=== PATIENT | female | born 1935 | race Caucasian/White ===

== ENCOUNTER 2018-12-08 06:49 | Inpatient (IN) ==
[2018-12-08] MEDS ORDERED: ACETAMINOPHEN 1,000 MG/100 ML VIAL IV STA (07:22)
[2018-12-08] MEDS ORDERED: ONDANSETRON INJ 2 MG/ML 2 ML VIAL IV STA (07:22)
[2018-12-08 07:41] LABS: Basophils # (auto) 0.04 K/uL (0-0.2); Basophils % (auto) 0.4 %; Eosinophils # (auto) 0.09 K/uL (0-0.5); Eosinophils % (auto) 0.8 %; Hematocrit (blood only) 40.4 % (37-47); Immature Granulocytes # (auto) 0.02 K/uL (0.00-0.02); Immature Granulocytes % (auto) 0.2 %; Lymphocytes # (auto) 1.43 K/uL (1.2-3.4); Mean Corpuscular Hgb Conc 34.7 g/dL (32-36); Mean Corpuscular Volume 81.5 fL (80-100); Mean Platelet Volume 10.3 fL (7.4-10.4); Monocytes % (auto) 9.1 %; Neutrophils # (auto) 8.43 K/uL (1.4-6.5); Neutrophils % (auto) 76.5 %; Platelet Count 236 K/uL (130-400); RDW Coefficient of Variation 12.8 % (11.5-14.5); Red Blood Count 4.96 M/uL (4.2-5.4); White Blood Count 11.01 K/uL (4.8-10.8)
[2018-12-08 07:56] LABS: Appearance Urine Cloudy (Clear); Color Urine Brown
[2018-12-08 07:57] LABS: BUN Creatinine Ratio 20.2 (10-20); Calcium 9.5 mg/dl (8.5-10.1); Creatinine Clr Calc Pharmacy 57.5 ml/min; Est GFR (African American) 70.9; Est GFR (Non-African American) 61.2; Potassium 3.5 mmol/L (3.5-5.1)
[2018-12-08 07:58] LABS: Specific Gravity Urine 1.013 (1.000-1.060)
[2018-12-08 08:04] LABS: Bacteria Urine 2+ (Negative); Epithelial Cell Urine 20-30 /lpf (0-5); RBC Urine >30 /hpf (0-4)
--- NOTE | 2018-12-08 08:08 | CT Scan Report ---
CT abd pelvis wo con CT DOSE: 981.51 mGy.cm HISTORY: Pain Pt c/o bladder mass removal. TECHNIQUE: Multiaxial CT images of the abdomen and pelvis were performed without contrast. A dose lo wering technique was utilized adhering to the principles of ALARA. COMPARISON STUDY: 11/22/2018 FINDINGS: Lung bases remain clear. There are bilateral renal parapelvic cysts which are unchanged. Th ere is a 3 mm nonobstructing renal cortical calcification unchanged from the prior study. Liver spleen and pancreas appear unremarkable. There are 2 fat containing nonobstructing ventral dane ias. These are unchanged prior study. The abdominal bowel pattern is nonobstructive. Pelvis shows bladder is collapsed. High density 5 cm pocket within the right pelvic cul-de-sac. This potentially represents a postprocedural hematoma. There is a small air-containing cystic focus immedi ately anterior to this measuring 3 cm. This may represent a small abscess. Pelvic bowel pattern is nonobstructive. IMPRESSION: 1. Interval removal of the nodular density/polypoid density of the right bladder. 2. Residual 5 cm high density pocket most likely representing a hematoma within the right central pel vis with a small 3 cm abscess immediately adjacent. 3. No additional acute abnormality. The above report was generated using voice recognition software. It may contain grammatical, syntax or spelling errors. Electronically signed by: Maikel Porras M.D. 12/08/2018 8:06 AM
[2018-12-08] MEDS ORDERED: DAPTOMYCIN IV SCH (08:15)
[2018-12-08] MEDS ORDERED: PIPERACILLIN/TAZOBACTAM 3.375 GM/115 ML BAG IV STA (08:15)
[2018-12-08] MEDS ORDERED: PIPERACILL/TAZOBAC CONSULT ACTIVE PRN (08:15)
[2018-12-08] MEDS ORDERED: DAPTOmycin 300 MG in SYRINGE 0 ML IV ONE (08:45)
--- NOTE | 2018-12-08 09:01 | History & Physical Report ---
Date of Service December 08, 2018 Assessment & Plan (1) Urinary retention: (2) S/P urological surgery: (3) Hematoma: - Admit to med surg per request of urology - Pt underwent elective urological surg on 12/[address] 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 Interval removal of the nodular density/polypoid density of the right bladder. 2. Residual 5 cm high density pocket most likely representing a hematoma within the right central pelvis with a small 3 cm abscess immediately adjacent. 3. No additional acute abnormality. - NPO in case of procedure, last PO intake 5pm on 12/07. - Pain control with pyridium, percocet, meloxicam - BCx x 2, Ucx in process - Received zosyn and daptomycin in the ER, continue for now. Titrate per urology - Urinary retention and had 1L out with straight cath in ER, monitor for retention with PVR bladder scan. (4) HTN (hypertension): - Order morning losartan-hctz and amlodipine now as she missed meds - Pain control will improve BP as well (5) DVT prophylaxis: -teds, scds, no chemical ppx in the setting of hematoma/surgical procedure. History of Present Illness Primary Care Provider: Laurent Crockerkarina This is an 83 yo F with PMHx of HTN, bulging disc, frequent UTI, hx of uterine fibroid, macular degeneration, sleep apnea but does not use CPAP who presents with acute onset of lower back pain and urinary urgency this morning. Pt underwent elective urological surgery by Dr. 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 Pt notes she was leaking urine in small amounts and that it appeared dark red overnight, no passing of clot. She had last normal BM on Monday but is passing gas. Pt has not eaten or drank anything since last evening at 5pm. Pt was able to take mybetriq and pyridium this morning but missed other medications. She denies any other acute complaints. Allergies Allergy/AdvReac Type Severity Reaction Status Date / Time Iodinated Contrast- Oral and Allergy Unknown Anaphylaxis Verified 12/08/18 07:23 IV Dye Home Medications Home Medications Medication Instructions Recorded Confirmed Type Myrbetriq 50 mg PO QAM 11/16/18 12/08/18 History PreserVision AREDS-2 2 tab PO QAM 11/16/18 12/08/18 History Restasis 1 drp OPHTHALMIC (EYE) Q12H 11/16/18 12/08/18 History amlodipine 10 mg PO QAM 11/16/18 12/08/18 History ergocalciferol (vitamin D2) 50,000 unit PO MONTHLY 11/16/18 12/08/18 History [Vitamin D2] losartan-hydrochlorothiazide 2 tab PO QAM 11/16/18 12/08/18 History meloxicam 15 mg PO QAM 11/16/18 12/08/18 History zolpidem [Ambien] 10 mg PO HS PRN 11/16/18 12/08/18 History ciprofloxacin HCl [Cipro] 500 mg PO BID #6 tab 12/06/18 12/08/18 Rx oxycodone-acetaminophen [Percocet] 1 tab PO Q6H PRN #10 tab 12/06/18 12/08/18 Rx phenazopyridine [Pyridium] 200 mg PO TID PRN #20 tab 12/06/18 12/08/18 Rx biotin 1 mg PO DAILY 12/08/18 12/08/18 History Past Med/Surg History Medical History Hematoma Urinary retention (Acute) Bladder cancer Bulging discs Chronic back pain Frequent UTI History of uterine fibroid Hypertension Macular degeneration Sleep apnea does not tolerate CPAP Surgical History S/P urological surgery H/O blepharoplasty 02/29/16 - MAC #3, ETT#7.0, Oral, Grade 1 View, Atraumatic DVL x 1 History of cardiac cath 8 years ago - [facility] - no stents/angioplasty > 10 years ago - [facility] - no stents/angioplasty History of cholecystectomy History of colonoscopy History of cystoscopy History of tooth extraction History of total abdominal hysterectomy and bilateral salpingo-oophorectomy w/ appendectomy Family History Brother Family hx of colon cancer Sister Family hx of colon cancer Social History Preferred Language: Latvian Communication Ability: Effective Marble Setter Required: No Beliefs That Will Affect Care: None Current Living Situation: Spouse Other Information That Helps Us Care for You: No Feels Safe at Home: Yes Safety Concerns: Feels Safe At This Time Smoking Status: Never smoker Do You Dip or Chew Tobacco: No Second Hand Exposure: No Tobacco Cessation Education Requested by Patient: No Hx Alcohol Use: No Hx Substance Use: No Review of Systems Review of Systems: Constitutional: No fever, sweats or chills Eyes: No diplopia, no worsening or blurred vision ENT: normal hearing, no trouble swallowing Respiratory: No cough, sputum, dyspnea at rest or on exertion Cardiovascular: No chest pain, tightness or palpitations Abdomen: No pain, nausea, vomiting, diarrhea or constipation Musculoskeletal: No joint pain, calf pain, swelling Neurologic: No weakness, numbness/tingling, or balance problems Urological: As per HPI. Skin: No rash or itch Physical Exam Physical Exam: General: awake, alert, no apparent distress Head: Normocephalic, atraumatic ENT: PERRL, EOMI, no pharyngeal exudate, mucous membranes moist Chest: Clear to auscultation, on room air, no adventitious breath sounds Cardiac: Regular rate and rhythm, no murmur, no JVD, normal peripheral pulses, good capillary refill Abdominal: NABS x 4 quadrants, soft, + slightly distended, nontender to palpation, no rebound, guarding or tenderness Extremities: Normal inspection, 1+ peripheral edema bilaterally, no erythema, calfs nontender to palpation Psych: Normal mood and affect Neuro: AAO x 3, no motor deficits, speech is clear Results & Data Vital Signs (Past 12 Hours) Vital Signs Temp Pulse Pulse Resp BP BP Pulse Ox 12/08/18 08:47 99 H 20 163/72 H 94 12/08/18 08:08 86 L 12/08/18 08:07 98 H 20 133/70 87 L 12/08/18 06:55 36.6 C 112 H 20 178/[address] H [address] abd pelvis wo con CT DOSE: 981.51 mGy.cm HISTORY: Pain Pt c/o bladder mass removal. TECHNIQUE: Multiaxial CT images of the abdomen and pelvis were performed without contrast. A dose lowering technique was utilized adhering to the principles of ALARA. COMPARISON STUDY: 11/22/2018 FINDINGS: Lung bases remain clear. There are bilateral renal parapelvic cysts which are unchanged. There is a 3 mm nonobstructing renal cortical calcification unchanged from the prior study. Liver spleen and pancreas appear unremarkable. There are 2 fat containing nonobstructing ventral hernias. These are unchanged prior study. The abdominal bowel pattern is nonobstructive. Pelvis shows bladder is collapsed. High density 5 cm pocket within the right pelvic cul-de-sac. This potentially represents a postprocedural hematoma. There is a small air-containing cystic focus immediately anterior to this measuring 3 cm. This may represent a small abscess. Pelvic bowel pattern is nonobstructive. IMPRESSION: 1. Interval removal of the nodular density/polypoid density of the right bladder. 2. Residual 5 cm high density pocket most likely representing a hematoma within the right central pelvis with a small 3 cm abscess immediately adjacent. 3. No additional acute abnormality. Code Status & VTE Plan Code Status DNR- discussed with pt and daughter at bedside Supervising Physician Co-Signing Physician Notes During my face to face encounter, patient was interviewed for a history and examined for a physical exam. I reviewed above note done by [facility] and agree with it. Patient initially was admitted to our service for hematuria. Will monitor urine output for hematuria. D/W urologist and patient will be switched to Urology service for tomorrow with medicine on consult as this is mainly a urological problem. Anticipate a short hospital stay. If Urology has any further question or needs our input, please feel free to call us.
[2018-12-08] MEDS ORDERED: ONDANSETRON INJ 2 MG/ML 2 ML VIAL IV PRN (09:09)
[2018-12-08] MEDS ORDERED: ACETAMINOPHEN 325 MG TAB PO PRN (09:09)
--- NOTE | 2018-12-08 09:32 | Emergency Department Note ---
Entered by May Art acting as a scribe for Cortes Lewis MD History of Present Illness General Chief complaint: Urinary Symptoms Stated complaint: SURGERY ON 12/06/18 NOW URINARY SYMPTOMS Time Seen by Provider: 12/08/18 07:00 Source: patient History of Present Illness Onset (ago): day(s) 1 Location: pelvis Pain Consistency: + other (persistent) Maximum Pain Intensity: 10 Quality: + other (urinary frequency) Relieved By: not by medication (Ciprofloxacin, Pyridium) Exacerbated By: + movement Associated symptoms: + denies other symptoms (dysuria, hematuria, nausea, vomiting, fever, or chills) and + other (mild urinary leakage with movement, constipation) The patient is a 83 year old female that is presenting to the Emergency Room with complaints of persistent urinary frequency that started yesterday. The patient reports that she had a transurethral resection of her bladder 2 days ago for a bladder mass. She states that yesterday she started having urinary frequency and that she is dripping urine every time stands up. She notes that she has to lie flat to avoid any urinary leakage. The patient states that she is not producing much urine when she urinates. She reports that she started having bilateral back pain this morning and decided to come to the Emergency Room. She denies any dysuria or blood clots in her urine. She denies any nausea, vomiting, fever, or chills. She reports that her symptoms are not relieved by Pyridium or Ciprofloxacin. The patient states that she last took Cipro yesterday and denies taking any today. She notes that her last bowel movement was 2 days ago prior to surgery. She states that she has taken Miralax with no relief in her constipation symptoms. She states that she spoke with Dr. Adame yesterday and that he did not seem overly concerned about her symptoms. She reports that he told her to come to the ED if her symptoms worsened. She notes that she has a history of frequent UTIs and hypertension. She denies any history of diabetes. Home Medications Home Medications Medication Instructions Recorded Confirmed Type Myrbetriq 50 mg PO QAM 11/16/18 12/08/18 History PreserVision AREDS-2 2 tab PO QAM 11/16/18 12/08/18 History Restasis 1 drp OPHTHALMIC (EYE) Q12H 11/16/18 12/08/18 History amlodipine 10 mg PO QAM 11/16/18 12/08/18 History ergocalciferol (vitamin D2) 50,000 unit PO MONTHLY 11/16/18 12/08/18 History [Vitamin D2] losartan-hydrochlorothiazide 2 tab PO QAM 11/16/18 12/08/18 History meloxicam 15 mg PO QAM 11/16/18 12/08/18 History zolpidem [Ambien] 10 mg PO HS PRN 11/16/18 12/08/18 History ciprofloxacin HCl [Cipro] 500 mg PO BID #6 tab 12/06/18 12/08/18 Rx oxycodone-acetaminophen [Percocet] 1 tab PO Q6H PRN #10 tab 12/06/18 12/08/18 Rx phenazopyridine [Pyridium] 200 mg PO TID PRN #20 tab 12/06/18 12/08/18 Rx biotin 1 mg PO DAILY 12/08/18 12/08/18 History Allergies Allergy/AdvReac Type Severity Reaction Status Date / Time Iodinated Contrast- Oral and Allergy Unknown Anaphylaxis Verified 12/08/18 07:23 IV Dye Past Med/Surg History Medical History Hematoma Urinary retention (Acute) Bladder cancer Bulging discs Chronic back pain Frequent UTI History of uterine fibroid Hypertension Macular degeneration Sleep apnea does not tolerate CPAP Surgical History S/P urological surgery H/O blepharoplasty 02/29/16 - MAC #3, ETT#7.0, Oral, Grade 1 View, Atraumatic DVL x 1 History of cardiac cath 8 years ago - [facility] - no stents/angioplasty > 10 years ago - [facility] [place] stents/angioplasty History of cholecystectomy History of colonoscopy History of cystoscopy History of tooth extraction History of total abdominal hysterectomy and bilateral salpingo-oophorectomy w/ appendectomy Family History Brother Family hx of colon cancer Sister Family hx of colon cancer Social History Preferred Language: Danish Communication Ability: Effective Beliefs That Will Affect Care: None Current Living Situation: Spouse Feels Safe at Home: Yes Smoking Status: Never smoker Second Hand Exposure: Yes ( used to be a smoker (quit 40 years ago)) Hx Alcohol Use: No Hx Substance Use: No Review of Systems See HPI for pertinent positives & negatives. and A total of 10 systems reviewed and were otherwise negative Physical Exam Vital Signs Vital Signs - 24 hr 12/08/18 06:55 12/08/18 08:07 12/08/18 08:08 Temperature 36.6 C Temperature Source Oral Sepsis Recent Fever Within 48 Hours No Sepsis Action Taken by Nursing No Action Required Pulse Rate 112 H Pulse Rate [Left Finger] 98 H Pulse Rhythm [Left Finger] Regular Pulse Strength [Left Finger] Normal Respiratory Rate 20 20 Respiratory Effort / Characteristics Non-Labored Non-Labored Spontaneous Respiratory Depth Normal Normal Respiratory Pattern Regular Blood Pressure 178/70 H Blood Pressure [Left Arm] 133/70 Blood Pressure Mean 106 Blood Pressure Mean [Left Arm] 91 Blood Pressure Position [Left Arm] Sitting Pulse Oximetry 95 87 L 86 L Oxygen Delivery Method Room Air Room Air Room Air Oxygen Flow Rate 12/08/18 08:47 Temperature Temperature Source Sepsis Recent Fever Within 48 Hours Sepsis Action Taken by Nursing Pulse Rate Pulse Rate [Left Finger] 99 H Pulse Rhythm [Left Finger] Regular Pulse Strength [Left Finger] Normal Respiratory Rate 20 Respiratory Effort / Characteristics Non-Labored Spontaneous Respiratory Depth Normal Respiratory Pattern Regular Blood Pressure Blood Pressure [Left Arm] 163/72 H Blood Pressure Mean Blood Pressure Mean [Left Arm] 102 Blood Pressure Position [Left Arm] Sitting Pulse Oximetry 94 Oxygen Delivery Method Nasal Cannula Oxygen Flow Rate 2 GENERAL: Awake, alert, well-appearing, in no acute distress HENT: Normocephalic, atraumatic. Oropharynx unremarkable. EYES: Normal conjunctiva. Sclera non-icteric. NECK: Supple. No nuchal rigidity. FROM. No JVD. RESPIRATORY: Clear to auscultation. CARDIAC: Regular rate, normal rhythm. Extremities warm and well perfused. Pulses equal. ABDOMEN: Soft, non-distended. No tenderness to palpation. No rebound or guarding. No masses. RECTAL: Deferred. MUSCULOSKELETAL: Chest examination reveals no tenderness. The back is symmetrical on inspection without obvious abnormality. There is no CVA tenderness to palpation. No joint edema. LOWER EXTREMITIES: Calves are equal size bilaterally and non-tender. No edema. No discoloration. NEURO: Normal sensorium. No sensory or motor deficits noted. SKIN: No rash or jaundice noted. Course 704: The patient was seen and evaluated by the Resident Physician at this time. History and physical were discussed with me. 0737: Bladder scan revealed 648ccs of urine were retained in the bladder after voiding. 0813: The patient's case was discussed with [facility], who recommended starting the patient on a course of Rocephin and that she be admitted to the Hospitalist Service. He will evaluate the patient further. 0820: I discussed the patients case with FRANCY Walker, who will evaluate the patient for further management and care with Dr. Rojas as the attending physician. 0830: Upon reevaluation, the patient is resting comfortably. I discussed laboratory and radiographic results with the patient. She verbalized agreement of the treatment plan. The patient will be evaluated for further management and care. Consultations Consultation #1: The patient's case was discussed with [facility], who recommended starting the patient on a course of Rocephin and that she be admitted to the Hospitalist Service. He will evaluate the patient further. Time: 08:13 Consultation #2: I discussed the patients case with FRANCY Walker, who will evaluate the patient for further management and care with Dr. Rojas as the attending physician. Time: 08:20 Administered Medications Discontinued Medications Acetaminophen (Ofirmev) 1,000 mg in 100 mls @ 400 mls/hr IV NOW STA Stop: 12/08/18 07:36 Last Infusion: 12/08/18 08:10 Dose: 0 mls/hr Documented by: [id number] Admin: 12/08/18 07:40 Dose: 400 mls/hr Documented by: [id number] Piperacillin Sod/Tazobactam Sod (Zosyn) 3.375 gm in 115 mls @ 230 mls/hr IV NOW STA Stop: 12/08/18 08:44 Last Admin: 12/08/18 08:43 Dose: 230 mls/hr Documented by: [id number] Daptomycin 300 mg/ Syringe 6 mls @ 3 mls/min IV NOW ONE; Protocol Stop: 12/08/18 08:46 Last Admin: 12/08/18 09:16 Dose: 3 mls/min Documented by: [id number] Ondansetron HCl (Zofran) 4 mg IV NOW STA Stop: 12/08/18 07:23 Last Admin: 12/08/18 07:40 Dose: 4 mg Documented by: [id number] Medical Decision Making Differential Diagnosis Differential diagnosis: Etiologies such as biliary colic, cholecystitis, hepatitis, perihepatitis, pancreatitis, cardiac disease, pancreatitis, gastritis, peptic ulcer disease, appendicitis, ovarian cyst, ovarian torsion, ectopic , pelvic inflammatory disease, cystitis, diverticulitis, mesenteric ischemia, inflammatory bowel disease, ileus, bowel obstruction, aortic pathology, shingles, as well as others were considered. Medical Records Attestation: I reviewed the patient's medical records. Home Medications Current Medication List: was personally reviewed by me Laboratory Data Attestation: I reviewed the patient's lab results. Result diagrams: 12/08/18 07:21 12/08/18 07:21 Lab Results 12/08/18 12/08/18 12/08/18 Range/Units 07:21 07:21 07:35 WBC 11.01 H (4.8-10.8) K/uL RBC 4.96 (4.2-5.4) M/uL Hgb 14.0 (12.0-16.0) g/dL Hct 40.4 (37-47) % MCV 81.5 (80-100) fL MCH 28.2 (25-34) pg MCHC 34.7 (32-36) g/dL RDW Std Deviation 38.0 (36.4-46.3) fL RDW Coeff of Wilber 12.8 (11.5-14.5) % Plt Count 236 (130-400) K/uL MPV 10.3 (7.4-10.4) fL Immature Gran % (Auto) 0.2 % Neut % (Auto) 76.5 % Lymph % (Auto) 13.0 % Woodward % (Auto) 9.1 % Eos % (Auto) 0.8 % Baso % (Auto) 0.4 % Immature Gran # (Auto) 0.02 (0.00-0.02) K/uL Neut # (Auto) 8.43 H (1.4-6.5) K/uL Lymph # (Auto) 1.43 (1.2-3.4) K/uL Woodward # (Auto) 1.00 H (0.11-0.59) K/uL Eos # (Auto) 0.09 (0-0.5) K/uL Baso # (Auto) 0.04 (0-0.2) K/uL Sodium 138 (136-145) mmol/L Potassium 3.5 (3.5-5.1) mmol/L Chloride 101 (98-107) mmol/L Carbon Dioxide 29 (21-32) mmol/L Anion Gap 8.0 (3-11) BUN 18 (7-18) mg/dl Creatinine 0.88 (0.6-1.2) mg/dl Est Cr Clr Drug Dosing 57.5 ml/min Est GFR ( Amer) 70.9 Est GFR (Non-Af Amer) 61.2 BUN/Creatinine Ratio 20.2 H (10-20) Glucose 142 H (70-99) mg/dl Calcium 9.5 (8.5-10.1) mg/dl Urine Color Brown Urine Appearance Cloudy A (Clear) Urine pH (4.5-7.5) Ur Specific Davenport 1.013 (1.000-1.060) Urine Protein (Negative) Urine Glucose (UA) (Negative) Urine Ketones (Negative) Urine Blood (Negative) Urine Nitrite (Negative) Urine Bilirubin (Negative) Urine Urobilinogen (Negative) Ur Leukocyte Esterase (Negative) Urine RBC >30 H (0-4) /hpf Urine WBC 10-30 H (0-5) /hpf Ur Epithelial Cells 20-30 H (0-5) /lpf Urine Bacteria 2+ H (Negative) Imaging Data Radiologist's Impression: Radiology results as stated below per my review and the radiologist's interpretation: CT abd pelvis wo con CT DOSE: 981.51 mGy.cm HISTORY: Pain Pt c/o bladder mass removal. TECHNIQUE: Multiaxial CT images of the abdomen and pelvis were performed without contrast. A dose lowering technique was utilized adhering to the principles of ALARA. COMPARISON STUDY: 11/22/2018 FINDINGS: Lung bases remain clear. There are bilateral renal parapelvic cysts which are unchanged. There is a 3 mm nonobstructing renal cortical calcification unchanged from the prior study. Liver spleen and pancreas appear unremarkable. There are 2 fat containing nonobstructing ventral hernias. These are unchanged prior study. The abdominal bowel pattern is nonobstructive. Pelvis shows bladder is collapsed. High density 5 cm pocket within the right pelvic cul-de-sac. This potentially represents a postprocedural hematoma. There is a small air-containing cystic focus immediately anterior to this measuring 3 cm. This may represent a small abscess. Pelvic bowel pattern is nonobstructive. IMPRESSION: 1. Interval removal of the nodular density/polypoid density of the right jazmin dder. 2. Residual 5 cm high density pocket most likely representing a hematoma within the right central pelvis with a small 3 cm abscess immediately adjacent. 3. No additional acute abnormality. The above report was generated using voice recognition software. It may contain grammatical, syntax or spelling errors. Electronically signed by: Maikel Porras M.D. 12/08/2018 8:06 AM Blood Pressure Blood Pressure Findings: Elevated blood pressure Blood Pressure Disposition: Referred to patients primary care provider MDM Narrative This is an 83-year-old female who presents emergency department complaining of urinary symptoms. A Ren was placed. Patient does have an elevation in her white blood cell count. Due to the recent surgery she was sent for CAT scan of the abdomen pelvis. This is concerning for a possible abscess. She was started on broad-spectrum antibiotics. We did discuss her case with both urology as well as the hospitalist service who kindly admitted the patient. Patient was in agreement with the treatment plan. Impression & Plan Abdominal pain, Urinary retention Discharge Plan Visit Data Chief Complaint: Urinary Symptoms Stated Complaint: SURGERY ON 12/06/18 NOW URINARY SYMPTOMS ED Provider: Cortes Lewis ED Midlevel Provider: Archie Looney Discharge Problem: Abdominal pain, Urinary retention Patient Disposition: Being Evaluated by Hospitalist Forms Stand Alone Forms: [facility] edulio Prescriptions Prescriptions: No Action meloxicam 15 mg Tablet 15 mg PO QAM RF: 0 amlodipine 10 mg Tablet 10 mg PO QAM RF: 0 ergocalciferol (vitamin D2) [Vitamin D2] 50,000 unit Capsule 50,000 unit PO MONTHLY RF: 0 zolpidem [Ambien] 10 mg Tablet 10 mg PO HS PRN (Reason: Insomnia) RF: 0 losartan-hydrochlorothiazide 50-12.5 mg Tablet 2 tab PO QAM RF: 0 Restasis 0.05 % Dropperette 1 drp OPHTHALMIC (EYE) Q12H RF: 0 Myrbetriq 50 mg Tablet Extended Release 24 Hr 50 mg PO QAM RF: 0 PreserVision AREDS-2 [id number] Capsule 2 tab PO QAM RF: 0 oxycodone-acetaminophen [Percocet] 2.5-325 mg tablet 1 tab PO Q6H PRN (Reason: pain) Qty: 10 RF: 0 phenazopyridine [Pyridium] 200 mg tablet 200 mg PO TID PRN (Reason: bladder spasms) Qty: 20 RF: 0 ciprofloxacin HCl [Cipro] 500 mg tablet 500 mg PO BID Qty: 6 RF: 0 biotin 1 mg Tablet 1 mg PO DAILY RF: 0 Referrals Referrals: Laurent Arboleda [Primary Care Provider] - Discharge Problem: Abdominal pain Qualifiers: Abdominal location: unspecified location Qualified Code(s): R10.9 - Unspecified abdominal pain The scribe's documentation has been prepared under my direction and personally reviewed by me in its entirety. I confirm that the note above accurately reflects all work, treatment, procedures, and medical decision making performed by me.
--- NOTE | 2018-12-08 10:04 | Emergency Department Note ---
ED Visit Note I, Archie Looney, PGY-2, saw and assisted in the care of this patient with Dr. Lewis. . Resident Activity Tracking Resident Involvement: Resident Care Provided Care Provided: Adult ED : Abdominal pain Qualifiers: Abdominal location: unspecified location Qualified Code(s): R10.9 - Unspecified abdominal pain
[2018-12-08] MEDS ORDERED: PHENAZOPYRIDINE HCL 200 MG TAB PO PRN (10:36)
[2018-12-08] MEDS ORDERED: NON-FORMULARY MEDICATION (Cyclosporine [Restasis] 1 DROPS) OP SCH (10:36)
[2018-12-08] MEDS ORDERED: ZOLPIDEM TARTRATE 10 MG TAB PO PRN (10:36)
[2018-12-08] MEDS ORDERED: OXYCODONE/ACETAMINOPHEN 5mg/325mg TAB PO PRN (10:36)
[2018-12-08] MEDS: SODIUM CHLORIDE 0.45 % 1,000 ML IV SCH ×2 (13:15→23:29)
[2018-12-08] MEDS: AMLODIPINE BESYLATE 5 MG TAB PO SCH (13:16)
[2018-12-08] MEDS: LOSARTAN/HCTZ 50/12.5MG TAB PO SCH (13:17)
[2018-12-08] MEDS: PIPERACILLIN/TAZOBACTAM 3.375 GM in DEXTROSE 5% 100 ML IV SCH ×2 (14:30→20:52)
--- NOTE | 2018-12-08 20:01 | Consultation Report ---
DATE OF CONSULTATION: 12/08/2018 REASON FOR ADMISSION: Urinary retention postop TURBT. HISTORY OF PRESENTATION: The patient is an 83-year-old female who had a TURBT on 12/07/2018. Postoperatively, she went home, was having difficulty voiding yesterday afternoon and evening, called and we discussed with the patient and the daughter whether the patient should come in. She was having some difficulties she thought with voiding and urgency, but no abdominal pain and no significant hematuria. We discussed coming to the Emergency Room, but also discussed the fact at the time that she should feel some urgency after TURBT. Because this was 24-26 hours afterwards, I did not expect acute retention. I told them to come to the Emergency Room if this got worse. The patient did come this morning to the Emergency Room because she did have increasing pressure overnight and she was catheterized for a liter. Had a CAT scan, which does show a fluid collection outside the bladder, which could be some extravasation of urine from being overly full or perhaps a little bit of blood is not clear. Her abdomen is completely soft. The urine is bloody with some mild clots, but it is old blood and it does not look like it is actively bleeding. The patient is completely comfortable. Urine is draining sort of dark urine. I did irrigate it with some small clots coming out, but they looked like older clots. She has been admitted, has an IV catheter in and is going to be fed. Her hematocrit is relatively stable at 40.4, it was 39.4 preoperatively. Her white count is slightly elevated at 11,000. Her urine culture is pending and she is on antibiotics per the hospitalist at this time pending culture. from the emergency room. Again, the patient denies any abdominal pain. We will be observing her overnight. PAST MEDICAL HISTORY: Significant for bladder cancer, bulging disc, chronic back pain, frequent UTI, history of uterine fibroids, hypertension, macular degeneration and sleep apnea. PAST SURGICAL HISTORY: Status post TURBT 2 days ago, history of blepharoplasty, history of cardiac cath, no stents or angioplasty, history of cholecystectomy, history of colonoscopy, history of tooth extraction, TAHBSO and appendectomy. REVIEW OF SYSTEMS: Please refer to the admission ER visit for review of systems. SOCIAL HISTORY: The patient does not use alcohol, was never a smoker but was exposed to smoker from her . PHYSICAL EXAMINATION: HEENT: Within normal limits. LUNGS: Clear. She has no respiratory distress. ABDOMEN: Completely soft. GENITOURINARY: She has a Ren catheter in place, it is draining brown to slightly dark-colored urine. EXTREMITIES: Unremarkable. She has no significant pedal edema. RECTAL: Deferred. MUSCULOSKELETAL: Again is within normal limits. NEUROLOGIC: She is alert and oriented without any focal sensory deficit. SKIN: Normal. ASSESSMENT AND PLAN: The patient had postoperative retention with some hematuria. The patient is going to be admitted with a Ren catheter, pending urine culture. We will probably be sending her out once the urine appears to be relatively clear with a Ren catheter in place. LYNND
[2018-12-08] MEDS: CEROVITE ADV FORMULA TAB PO SCH (20:49)
[2018-12-09] MEDS: PIPERACILLIN/TAZOBACTAM 3.375 GM in DEXTROSE 5% 100 ML IV SCH ×3 (05:38→21:35)
[2018-12-09 07:05] LABS: Hematocrit (blood only) 35.1 % (37-47); Hemoglobin 11.8 g/dL (12.0-16.0); Mean Corpuscular Hgb Conc 33.6 g/dL (32-36); Mean Corpuscular Volume 83.4 fL (80-100); Mean Platelet Volume 10.4 fL (7.4-10.4); Platelet Count 204 K/uL (130-400); RDW Standard Deviation 39.2 fL (36.4-46.3); Red Blood Count 4.21 M/uL (4.2-5.4); White Blood Count 5.91 K/uL (4.8-10.8)
[2018-12-09 07:39] LABS: BUN Creatinine Ratio 17.1 (10-20); Calcium 8.7 mg/dl (8.5-10.1); Creatinine Clr Calc Pharmacy 64.8 ml/min; Est GFR (African American) 82.1; Est GFR (Non-African American) 70.8; Potassium 3.7 mmol/L (3.5-5.1)
[2018-12-09 07:42] LABS: Albumin Globulin Ratio 1.1 (0.9-2); Bilirubin,Total 0.6 mg/dl (0.2-1); Globulin 2.8 gm/dl (2.5-4.0); Total Protein 5.8 gm/dl (6.4-8.2)
[2018-12-09] MEDS: LOSARTAN/HCTZ 50/12.5MG TAB PO SCH (07:51)
[2018-12-09] MEDS: AMLODIPINE BESYLATE 5 MG TAB PO SCH (07:52)
[2018-12-09] MEDS: MIRABEGRON ER 25 MG TAB PO SCH (07:52)
[2018-12-09] MEDS: CEROVITE ADV FORMULA TAB PO SCH ×2 (07:52→21:35)
[2018-12-09] MEDS ORDERED: NON-FORMULARY MEDICATION (Biotin 1 MG) PO SCH (09:00)
[2018-12-09] MEDS: MELOXICAM 7.5 MG TAB PO SCH (09:23)
[2018-12-09] MEDS: SODIUM CHLORIDE 0.45 % 1,000 ML IV SCH ×2 (11:36→23:21)
--- NOTE | 2018-12-09 12:32 | Urology Progress Note ---
Date of Service December 09, 2018 Assessment & Plan (1) S/P urological surgery: Subjective Pt feels well . Urine appears pink with occasional clot Physical Exam Gastrointestinal (Abdomen): Inspection/Auscultation: abdomen normal to inspection Percussion/Palpation: abdomen soft Results & Data Vital Signs (Past 12 Hours) Vital Signs Temp Pulse Resp BP Pulse Ox 12/09/18 07:07 36.8 C 90 16 108/69 90 Laboratory Results urine culture no growth to date final pending HCT 35.1 down from 40 yesterday but urine clearing
[2018-12-10] MEDS: PIPERACILLIN/TAZOBACTAM 3.375 GM in DEXTROSE 5% 100 ML IV SCH (05:28)
[2018-12-10 06:08] LABS: Hemoglobin 12.7 g/dL (12.0-16.0); Mean Corpuscular Hgb Conc 35.3 g/dL (32-36); Mean Corpuscular Volume 82.2 fL (80-100); Mean Platelet Volume 9.9 fL (7.4-10.4); Platelet Count 211 K/uL (130-400); RDW Coefficient of Variation 12.9 % (11.5-14.5); Red Blood Count 4.38 M/uL (4.2-5.4); White Blood Count 6.49 K/uL (4.8-10.8)
[2018-12-10 06:40] LABS: Albumin Level 3.1 gm/dl (3.4-5.0); Calcium 8.5 mg/dl (8.5-10.1); Creatinine Clr Calc Pharmacy 66.5 ml/min; Est GFR (African American) 84.7; Est GFR (Non-African American) 73.1; Potassium 3.9 mmol/L (3.5-5.1)
[2018-12-10 06:43] LABS: Bilirubin,Total 0.6 mg/dl (0.2-1); Globulin 3.2 gm/dl (2.5-4.0); Total Protein 6.3 gm/dl (6.4-8.2)
[2018-12-10] MEDS: MIRABEGRON ER 25 MG TAB PO SCH (09:43)
[2018-12-10] MEDS: AMLODIPINE BESYLATE 5 MG TAB PO SCH (09:43)
[2018-12-10] MEDS: CEROVITE ADV FORMULA TAB PO SCH (09:43)
[2018-12-10] MEDS: LOSARTAN/HCTZ 50/12.5MG TAB PO SCH (09:43)
[2018-12-10] MEDS: MELOXICAM 7.5 MG TAB PO SCH (09:44)
--- NOTE | 2018-12-10 09:53 | Urology Progress Note ---
Date of Service December 10, 2018 Results & Data Vital Signs (Past 12 Hours) Vital Signs Temp Pulse Resp BP Pulse Ox 12/10/18 07:18 36.9 C 91 H 16 136/77 91 12/09/18 22:50 36.9 C 86 16 130/71 93
--- NOTE | 2018-12-10 09:57 | Urology Progress Note ---
Date of Service December 10, 2018 Assessment & Plan (1) S/P urological surgery: Present on Admission?: Yes (2) Urinary retention: Present on Admission?: Yes Subjective Pt without complaints . Urine clear this morning . No abdominal pain. Physical Exam Physical Exam: urine yellow abdomen soft ,nontender Results & Data Vital Signs (Past 12 Hours) Vital Signs Temp Pulse Resp BP Pulse Ox 12/10/18 07:18 36.9 C 91 H 16 136/77 91 12/09/18 22:50 36.9 C 86 16 130/71 93 Laboratory Results hct up from yesterday and wbc nl
--- NOTE | 2018-12-10 11:27 | Discharge Summary ---
HISTORY OF PRESENTATION AND HOSPITAL COURSE: The patient is an 83-year-old female status post TURBT on 12/06/[address] Sharma, who called 12/07, late afternoon-early evening with complaints of frequency and some mild hematuria. I discussed it with the patient and the daughter that she possibly could have some irritation. She had been on Myrbetriq prior to the surgery from this, but I also told her that it could not be sure that she was in retention and that she would need to come to the Emergency Room to be evaluated for that. They elected not to with the understanding that if her symptoms get worse, she would need to go to the Emergency Room. Her symptoms did get worse. She did come to the Emergency Room and she did have a liter of urine in her bladder with hematuria and on CAT scan what appeared to be some small extravasation. After the catheters were placed, her discomfort was completely gone. She was started on Rocephin. Urine cultures have grown out 3 organisms without any obvious positive organism. She has been on Rocephin and her white blood cell count has been normal and she has been afebrile. The patient's urine initially was still bloody with some clots yesterday. Because she had had significant discomfort, she was frightened to going home and I was also concerned that she could plug the catheter. Overnight, her urine has completely cleared. I did irrigate her catheter yesterday as well as the day of the admission. Yesterday, I did find some small clots; on the first day, I found multiple clots that were again small, but today again the urine is clear. She is comfortable going home with an indwelling Ren catheter and is going to call tomorrow for followup. We will send her home also on ciprofloxacin. Again, the patient feels well. No abdominal pain. She may need to be imaged down the road to make sure that whatever small fluid extravasated possibly during her retention or in the postop period is resolved. She understands if she gets fever or abdominal pain, she is to call and/or return or if the catheter does not drain properly.
[2018-12-15] MEDS ORDERED: ERGOCALCIFEROL 50,000 UNITS CAP PO SCH (09:00)
== END 2018-12-10 11:37 | disposition home or self-care (01) | DRG 670 ==
LOC: ED 06:49 → SUATTDRO 09:09 → 3N 09:09